=== PATIENT | male | born 1990 | race Caucasian/White ===

== ENCOUNTER 2020-08-24 02:27 | Emergency (ER) | payer SELFPAY ==
[~2020-08-24] VITALS: Ht 177.8 cm; Wt 90.7 kg
[2020-08-24] MEDS ORDERED: LIDOCAINE 1% W/EPINEPHRINE 20 ML VIAL ONE (02:55)
[2020-08-24] MEDS ORDERED: CEFAZOLIN SOD 1 GM/NS 50ML 50 ML IV ONE ×2 (03:00→03:13)
[2020-08-24] MEDS ORDERED: TETANUS/DIPHTHERIA TOX ADULT 0.5 ML SYR IM ONE (03:00)
[2020-08-24] MEDS ORDERED: BACITRACIN ZINC 0.9GM TP ONE (05:30)
[2020-08-24] MEDS ORDERED: LIDOCAINE 1% W/EPINEPHRINE 20 ML VIAL INJ ONE (05:45)
== END 2020-08-24 05:36 | disposition home or self-care (01) ==
LOC: FSED 02:49
DX: S01.411A Laceration without foreign body of right cheek and temporomandibular area, initial encounter (principal); W26.8XXA Contact with other sharp object(s), not elsewhere classified, initial encounter; Y99.0 Civilian activity done for income or pay; F17.220 Nicotine dependence, chewing tobacco, uncomplicated
CPT/HCPCS: 12014; 70486; 90471; 90714; 99284; J0690

== ENCOUNTER 2020-08-30 07:56 | Emergency (ER) | payer OTHER ==
[~2020-08-30] VITALS: Ht 177.8 cm; Wt 90.7 kg
[2020-08-30] MEDS ORDERED: BACTRIM DS TAB1 EACH PO (08:19)
--- NOTE | 2020-08-30 08:19 | Emergency Department Note ---
History of Present Illnes History of Present Illness Chief Complaint: here for suture removal on right face History of Present Illness This is a 30 year old male. pt had sutures placed 6 days ago rgt cheek. no complaints of infection of wound. Historian: Patient Arrival Mode: Car History limited by: condition of the patient (normal) Counseling Center Manager Required: No Onset (how long ago): day(s) (6) Location: rgt face Quality: n/a Radiation: Reports non-radiation Severity: mild Onset quality: gradual Duration (how long): day(s) (6) Timing of current episode: constant Progression: unchanged Chronicity: new Context: Reports trauma/injury; Denies recent illness, Denies recent surgery, Denies recent immobilization, Denies recent travel, Denies new medications, Denies hx of DVT/PE, Denies non- compliance w/ medications Relieving factors: none Exacerbating factors: none Associated symptoms: Reports denies other symptoms Treatments prior to arrival: none Past Medical/Family History Physician Review I have reviewed the patient's past medical and family history. Any updates have been documented here. Past Medical History Recent Fever: No Clinical Suspicion of Infectio: No New/Unexplained Change in Ment: No Past Medical History: None Past Surgical History: Appendectomy Social History Smoking Cessation: Never Smoker Alcohol Use: Social Any Illegal Drug Use: No Family History Family history of heart diseas: No Other Is patient up to date on immun: Yes Review of Systems Review of Systems Constitutional: Reports no symptoms EENTM: Reports no symptoms Cardiovascular: Reports no symptoms Respiratory: Reports no symptoms Gastrointestinal: Reports no symptoms Genitourinary: Reports no symptoms Musculoskeletal: Reports no symptoms Integumentary: Reports as per HPI Neurological: Reports no symptoms Psychological: Reports no symptoms Endocrine: Reports no symptoms Hematological/Lymphatic: Reports no symptoms Review of other systems: All other systems negative Physical Exam Related Data Allergies: Coded Allergies: No Known Allergies (Unverified , 08/24/20) Triage Vital Signs Vital Signs Date Time Temp Pulse Resp B/P (MAP) Pulse Ox O2 Delivery O2 Flow Rate FiO2 08/30/20 07:59 98.1 70 14 140/82 100 Room Air Vital signs reviewed: Yes Physical Exam CONSTITUTIONAL Constitutional: Present well-developed, Present well-nourished HENT HENT: Present normocephalic, Present atraumatic, Present oropharynx clear/moist, Present nose normal HENT L/R: Present left ext ear normal, Present right ext ear normal EYES Eyes: Reports PERRL, Reports conjunctivae normal NECK Neck: Present ROM normal, Present supple PULMONARY Pulmonary: Present effort normal, Present breath sounds normal CARDIOVASCULAR Cardiovascular: Present regular rhythm, Present heart sounds normal, Present capillary refill normal, Present normal rate GASTROINTESTINAL Abdominal: Present soft, Present nontender, Present bowel sounds normal GENITOURINARY Genitourinary: Present exam deferred SKIN Skin: Present warm, Present dry, Present other (sutures intact / healing wound rgt cheek/ no signs of infection.) MUSCULOSKELETAL Musculoskeletal: Present ROM normal NEUROLOGICAL Neurological: Present alert, Present oriented x 3, Present no gross motor or sensory deficits PSYCHOLOGICAL Psychological: Present mood/affect normal, Present judgement normal Assessment & Plan Medical Decision Making MDM see below Assessment & Plan Final Impression: (1) Wound of cheek Depart Disposition: HOME, SELF-CARE Last Vital Signs Date Time Temp Pulse Resp B/P (MAP) Pulse Ox O2 Delivery O2 Flow Rate FiO2 08/30/20 07:59 98.1 70 14 140/82 100 Room Air Home Meds Active Scripts Sulfamethoxazole/Trimethoprim (BACTRIM DS TABLET) 1 Each Tablet, 1 TAB PO Q12H, #20 TAB ONLY START IF ANY SIGNS OF INFECTION Prov:VICKI CUEVAS 08/30/20 VICKI CUEVAS Aug 30, 2020 08:19
--- OUTSIDE RECORDS SUMMARY | 2020-08-30 08:40 | XMS REPORT | Continuity of Care Document ---
Author Author [facility] t Organization [facility] Address [address] [place] [address] Phone Unavailable Care Team Providers Care Insurance Follow Up Representative Name Role Phone NO, PCP PCP Unavailable Neftaly CABRALES Attshelley Unavailable Problems Condition Name Condition Details Condition Category Status Onset Date Resolution Date Last Treatment Date Treating Clinician Comments Source Facial laceration Problem Active [facility] Allergies, Adverse Reactions, Alerts This patient has no known allergies or adverse reactions. Social History Social Habit Start Date Stop Date Quantity Comments Source Sex Assigned At 1990 00:00:00 1990 00:00:00 Male [facility] Medications This patient has no known medications. Vital Signs Vital Name Observation Time Observation Value Comments Source Weight 2020-08-24 02:35:00 200 [lb_av] [facility] BMI (Body Mass Index) 2020-08-24 02:35:00 28.7 kg/m2 [facility] Procedures This patient has no known procedures. Plan of Care Planned Activity Planned Date Details Comments Source Instructions Laceration [facility] Encounters Start Date/Time End Date/Time Encounter Type Admission Type [facility] Facility Care Department Encounter ID Source 2020-08-24 02:49:00 2020-08-24 05:36:00 Departed Emergency Room 1 NICHOLAS CABRALES [facility] [id number] [facility] Results Test Description Test Time Test Comments Results Result Comments Source CT MAX/FACPARANASA SIN WO-HOPD 2020-08-24 03:25:00 [facility] CENTERName: ANTOINE THAYER : 1990 Sex: M [facility] [address] [address] Patient Name: ANTOINE THAYER MR #: [id number] : 1990 Age/Sex: 30/M Req #: [id number] Adm Physician: Ordered by: NICHOLAS CABRALES MD Report #: [id number] Location: [facility] Room/Bed: Procedure: [id number] HOPD/CT MAX/FACPARANASA [facility] Ex[facility] Date: 08/24/20 Exam Time: 0310 REPORT STATUS: Signed History:Trauma Comparison studies: None Technique: Axial images were obtained through the maxillofacial region. Coronal and sagittal images reconstructed from the axial data. Dose modulation, iterative reconstruction, and/or weight based adjustment of the mA/kV was utilized to reduce the radiation dose to as low as reasonably achievable. Radiation dose: Total DLP: 403 mGy*cm. Estimated effective dose: DLP x 0.015 Intravenous contrast: None Findings: Soft tissues: Subcutaneous emphysema and fat-stranding are present in the superficial right infrazygomatic soft tissues. Lesion does not appear to grossly involve the adjacent superficial lobe of the right parotid gland. No retained hyperdense foreign body. Bones: No fractures or bony abnormalities. Orbits: Globes: Intact Extra or intraconal abnormalities: None. Paranasal sinuses: Small polyps or retention cysts in the right maxillary and left sphenoid sinuses. Remaining sinuses are clear. Middle ear cavities and mastoids: Clear. IMPRESSION: 1. Right infrazygomatic superficial soft tissue laceration and edema. 2. No retained hyperdense foreign body. Signed by: Dr. Joseph Jordan M.D. on 08/24/2020 3:42 AM Dictated By: JOSEPH JORDAN MD 1 Transcribed By: RUBEN on 08/24/20341 COPY TO: NICHOLAS CABRALES MD
== END 2020-08-30 08:20 | disposition home or self-care (01) ==
LOC: FSED 08:17
DX: Z48.01 Encounter for change or removal of surgical wound dressing (principal)
CPT/HCPCS: 99282

== ENCOUNTER 2020-09-04 07:30 | Emergency (ER) | payer SELFPAY ==
[~2020-09-04] VITALS: Ht 177.8 cm; Wt 90.7 kg
[~2020-09-04 07:30] MED LIST: BACTRIM DS TAB1 EACH PO
--- NOTE | 2020-09-04 09:00 | Emergency Department Note ---
History of Present Illnes History of Present Illness Chief Complaint: Skin Rash or Abscess History of Present Illness This is a 30 year old male here for suture removal. Sutures placed here 10 days ago after milk powder grinder broke off and went through patient's face shield causing laceration to right face. Historian: Patient Arrival Mode: Car Onset (how long ago): day(s) Location: right face Quality: no pain Radiation: Denies non-radiation Severity: unable to specify Onset quality: unable to specify Duration (how long): day(s) (10) Timing of current episode: unable to specify Progression: unable to specify Context: Reports trauma/injury Relieving factors: none Exacerbating factors: none Associated symptoms: Reports denies other symptoms Past Medical/Family History Physician Review I have reviewed the patient's past medical and family history. Any updates have been documented here. Past Medical History Recent Fever: No Clinical Suspicion of Infectio: No New/Unexplained Change in Ment: No Past Medical History: None Past Surgical History: Appendectomy Social History Smoking Cessation: Never Smoker Counseling Performed: No Alcohol Use: Occasional Any Illegal Drug Use: No Other Any Pre-Existing Lines (PICC,: No Review of Systems Review of Systems Constitutional: Denies chills, Denies fever EENTM: Denies nose congestion, Denies throat pain Cardiovascular: Denies chest pain Respiratory: Denies cough, Denies dyspnea Gastrointestinal: Denies diarrhea Neurological: Denies numbness, Denies paresthesia Hematological/Lymphatic: Denies easy bleeding Physical Exam Related Data Allergies: Coded Allergies: No Known Allergies (Unverified , 08/24/20) Triage Vital Signs Vital Signs Date Time Temp Pulse Resp B/P (MAP) Pulse Ox O2 Delivery O2 Flow Rate FiO2 09/04/20 07:39 98.1 77 16 116/70 99 Room Air Physical Exam CONSTITUTIONAL Constitutional: Present well-developed, Present well-nourished HENT HENT: Present normocephalic, Present nose normal, Present other (right face with healed sutured laceration from where inferior aspect of ear attaches to face running to zygomatic arch.) HENT L/R: Present left ext ear normal, Present right ext ear normal EYES NECK Neck: Present ROM normal PULMONARY Pulmonary: Present effort normal CARDIOVASCULAR GASTROINTESTINAL Abdominal: Present soft, Present nontender, Present bowel sounds normal GENITOURINARY SKIN Skin: Present warm, Present dry, Present other (healed facial laceration) MUSCULOSKELETAL Musculoskeletal: Present ROM normal NEUROLOGICAL Neurological: Present alert, Present oriented x 3, Present no gross motor or sensory deficits PSYCHOLOGICAL Psychological: Present mood/affect normal, Present judgement normal Procedures Procedures Procedure: Sutures Removal: 10 sutures removed by me. Tolerated well, no complications. Assessment & Plan Medical Decision Making MDM Chart reviewed: 9 deep sutures placed and 10 superficial. Assessment & Plan Final Impression: (1) Facial laceration Depart Disposition: HOME, SELF-CARE Last Vital Signs Date Time Temp Pulse Resp B/P (MAP) Pulse Ox O2 Delivery O2 Flow Rate FiO2 09/04/20 07:39 98.1 77 16 116/70 99 Room Air Home Meds Active Scripts Sulfamethoxazole/Trimethoprim (BACTRIM DS TABLET) 1 Each Tablet, 1 TAB PO Q12H, #20 TAB ONLY START IF ANY SIGNS OF INFECTION Prov:VICKI CUEVAS 08/30/20 NICHOLAS CABRALES MD Sep 04, 2020 09:00
== END 2020-09-04 08:13 | disposition home or self-care (01) ==
LOC: FSED 07:54
DX: Z48.02 Encounter for removal of sutures (principal)